=== PATIENT | female | born 1990 ===

== ENCOUNTER 2017-11-08 14:04 | Emergency (ER) | payer MEDICAID ==
[2017-11-08 14:04] VITALS: BMI 50.3
[2017-11-08 14:30] VITALS: BP 130/87; PULSE 70; RESP 18; TEMP 98.2; O2SAT 98
--- NOTE | 2017-11-08 15:07 | C.PDOC ---
History Of Present Illness 27 y/o female presents to the ED with left ear pain. Patient states she began feeling a type of left ear ache yesterday. She reports hearing a buzzing sound only in the left ear. Denies any fever, upper respiratory symptoms, nausea, or vomiting. PMD: Dr. Sven Mark Time Seen by Provider: 11/08/17 14:38 Chief Complaint (Nursing): ENT Problem History Per: Patient History/Exam Limitations: None Onset/Duration Of Symptoms: Days (x1) Current Symptoms Are (Timing): Still Present Past Medical History Reviewed: Historical Data, Nursing Documentation, Vital Signs Vital Signs: Last Vital Signs Temp 98.2 F 11/08/17 14:25 Pulse 70 11/08/17 14:25 Resp 18 11/08/17 14:25 BP 130/87 11/08/17 14:25 Pulse Ox 98 11/08/17 17:47 - Medical History PMH: Hyperthyroidism Surgical History: Family History: States: Unknown Family Hx - Social History Hx Tobacco Use: No Hx Alcohol Use: No Hx Substance Use: No - Immunization History Hx Tetanus Toxoid Vaccination: No Hx Influenza Vaccination: No Hx Pneumococcal Vaccination: No Review Of Systems Except As Marked, All Systems Reviewed And Found Negative. Constitutional: Negative for: Fever ENT: Positive for: Ear Pain (left), Other (buzzing sound in left ear) Respiratory: Negative for: Other (upper respiratory symptoms) Gastrointestinal: Negative for: Nausea, Vomiting Physical Exam - Physical Exam Appears: Non-toxic, No Acute Distress Skin: Normal Color, Warm, Dry Head: Atraumatic Eye(s): bilateral: Normal Inspection, PERRL, EOMI Ear(s): Left: TM Erythema (with bulging), Right: Normal Neurological/Psych: Oriented x3 ED Course And Treatment O2 Sat by Pulse Oximetry: 98 (RA) Pulse Ox Interpretation: Normal Medical Decision Making Medical Decision Making: Time: 14:25 Plan: * Amoxicillin 500 mg PO * Motrin 600 mg PO Scribe Attestation: Documented by Rajni Lane acting as a scribe for TOÑA Solano MDibe Attestation: All medical record entries made by the Scribe were at my direction and personally dictated by me. I have reviewed the chart and agree that the record accurately reflects my personal performance of the history, physical exam, medical decision making, and the department course for this patient. I have also personally directed, reviewed, and agree with the discharge instructions and disposition. Disposition - Disposition Referrals: Ismael Ayala MD [Staff Provider] - Disposition: HOME/ ROUTINE Disposition Time: 15:12 Condition: STABLE Additional Instructions: Follow up with PMD and ENT specialist within 1-2 days. Return to ED if feel worse. Prescriptions: Amoxicillin 500 mg PO Q8 #30 tab Ibuprofen [Motrin Tab] 600 mg PO Q8 #30 tab Forms: [employer] (Peruvian) - Clinical Impression Clinical Impression: Otitis media
== END 2017-11-08 15:30 | disposition home or self-care (01) ==
LOC: C.ER 14:04
DX: H66.90 Otitis media, unspecified, unspecified ear (principal); E05.90 Thyrotoxicosis, unspecified without thyrotoxic crisis or storm